=== PATIENT | male | born 1985 | race Caucasian/White ===

== ENCOUNTER 2021-09-17 19:02 | Outpatient (CLI) | payer BC, OTHER ==
--- NOTE | 2021-09-18 12:31 | XRAY Report ---
PROCEDURE: Elbow 3 View RT INDICATIONS: R ARM PX TECHNIQUE: 4 views of the elbow were acquired. COMPARISON: None FINDINGS: Bones: No fractures or dislocations. No suspicious bony lesions. Soft tissues: No elbow joint effusion. No suspicious soft tissue calcifications. IMPRESSION: No visualized acute fracture or dislocation. However, occult injury cannot be excluded. Recommend lucia rt interval imaging follow-up in 7-10 days as clinically indicated for additional evaluation. Reviewed by: Dana Richards MD on 09/18/2021 12:26 PM PDT Approved by: Dana Richards MD on 09/18/2021 12:26 PM PDT Station ID: [id number]
== END 2021-09-17 23:59 | disposition home or self-care (01) ==
LOC: DI.N 19:02
PROVIDERS: ATTEND Nurse Practitioner
DX: M79.601 Pain in right arm (principal)

== ENCOUNTER → 2022-03-09 | Outpatient (CLI) | payer BC | END | disposition short-term general hospital (02) | LOC: EMS 15:40 | DX: R42 Dizziness and giddiness (principal); R61 Generalized hyperhidrosis; I10 Essential (primary) hypertension | CPT/HCPCS: A0425; A0427 ==

== ENCOUNTER 2022-07-06 15:06 | Emergency (ER) | payer BC ==
--- NOTE | 2022-07-06 15:22 | ED Physician Documentation ---
PD HPI HEENT - Stated complaint Stated Complaint: DIZZY/NECK AND HEAD PX - Chief complaint Chief Complaint: Neuro - History obtained from History obtained from: Patient - History of Present Illness Timing - onset: How many weeks ago (he has had some neck pain for couple of weeks without apparent injury. Hurts with ROM. Has had intermittent symptoms of vertigo, worse with head movement. He states had associated arm tingling last week and seen at [facility], with labs and ct done. He believes had contrast. No DX.) Timing - details: Abrupt onset (today had onset of vertigo again when got up from sitting, worse with head movment. Incompletely improves with rest. Associated with blurred vision lateral left visual field.) Location: Other (right posterior neck pain, some right head pressure. Vertigo and left lateral visual blurring.) Worsens: Position Associated symptoms: No: Fever, Congestion, Facial swelling Similar symptoms before: No diagnosis Recently seen: Emergency Dept (seen at [facility] last week. We tried to get records from them but none sent after couple of hours. I do not have access to their EHR.) Review of Systems Constitutional: denies: Fever, Chills Eyes: reports: Decreased vision. denies: Photophobia Ears: denies: Ear pain, Tinnitus/ringing Nose: denies: Rhinorrhea / runny nose, Congestion Throat: denies: Sore throat Respiratory: denies: Cough GI: reports: Nausea. denies: Vomiting, Diarrhea Neurologic: denies: Focal weakness, Numbness, Altered mental status PD PAST MEDICAL HISTORY - Past Medical History Cardiovascular: None Respiratory: None Neuro: None Endocrine/Autoimmune: None GI: None : None HEENT: None Psych: None Musculoskeletal: Other Derm: None - Past Surgical History Past Surgical History: Yes - Present Medications Home Medications: Ambulatory Orders Medication Instructions Recorded Confirmed Meclizine HCl [Motion Sickness] 25 mg PO Q6H PRN #30 tablet 07/06/22 Meloxicam [Mobic] 7.5 mg PO BID 10 Days #20 tablet 07/06/22 Ondansetron Odt [Zofran] 4 mg TL Q6H PRN #10 tablet 07/06/22 SUMAtriptan [Imitrex] 25 mg PO Q6H PRN #8 tablet 07/06/22 dexAMETHasone [Decadron] 4 mg PO DAILY #5 tablet 07/06/22 diazePAM [Valium] 5 mg PO BID PRN #14 tablet 07/06/22 - Allergies Allergies/Adverse Reactions: Allergies Allergy/AdvReac Type Severity Reaction Status Date / Time No Known Drug Allergies Allergy Verified 07/06/22 15:16 - Social History Does the pt smoke?: Yes Smoking Status: Former smoker Does the pt drink ETOH?: Yes Does the pt have substance abuse?: No - Immunizations Immunizations are current?: Yes PD ED PE NORMAL - Vitals Vital signs reviewed: Yes - General General: Alert and oriented X 3, No acute distress, Well developed/nourished Results - Vitals Vitals: Oxygen O2 Source Room air - Labs Labs: Laboratory Tests 07/06/22 07/06/22 07/06/22 16:05 16:05 16:05 WBC 12.2 H RBC 6.07 Hgb 18.0 Hct 55.3 H MCV 91.1 MCH 29.7 MCHC 32.5 RDW 14.1 Plt Count 237 MPV 9.5 Neut # (Auto) 9.8 H Lymph # (Auto) 1.5 [place] # (Auto) 0.7 Eos # (Auto) 0.1 Baso # (Auto) 0.1 Absolute Nucleated RBC 0.00 Nucleated RBC % 0.0 ESR 1 Sodium 140 Potassium 4.1 Chloride 100 L Carbon Dioxide 29 Anion Gap 11.0 BUN 19 Creatinine 1.3 H Estimated GFR (MDRD) 61 L Glucose 95 Calcium 8.8 Magnesium 1.7 Total Bilirubin 0.9 AST 19 ALT 19 Alkaline Phosphatase 49 Total Protein 6.8 Albumin 3.8 Globulin 3.0 Albumin/Globulin Ratio 1.3 Lipase 29 TSH 07/06/22 16:05 WBC RBC Hgb Hct MCV MCH MCHC RDW Plt Count MPV Neut # (Auto) Lymph # (Auto) [place] # (Auto) Eos # (Auto) Baso # (Auto) Absolute Nucleated RBC Nucleated RBC % ESR Sodium Potassium Chloride Carbon Dioxide Anion Gap BUN Creatinine Estimated GFR (MDRD) Glucose Calcium Magnesium Total Bilirubin AST ALT Alkaline Phosphatase Total Protein Albumin Globulin Albumin/Globulin Ratio Lipase TSH 1.86 PD Medical Decision Making - ED course Complexity details: reviewed old records (tried to get eR visit records from [facility], but no response from request after couple hours. will get ct neck/head angio here. and labs. might have been done already but not clear. Concern for vertebral artery dissection, given symptoms. Also tumor or bleed. ), reviewed results (CT head/neck angio normal. Wtih the combination of symptoms, it does sound perhaps migraine type with the vertigo and some other symptoms, would fit as dx of vestibular migraines. He was given iv meds here that are for migraine and had good improvement, though the diazepam for vertigo as well.), re- evaluated patient (he is feeling mostly improved with iv fluids, toradol, compazine, and diazepam (for vertigo). consider peripheral vertigo and coincidental neck pain. gave decadron for migraine. could help with neck muscle pain too. ) Drug Therapy Requiring Monitoring for Toxicity: given iv fluids, toradol, antiemetic and diazepam without undue sedation nor any side effects. symptoms generally improved. Departure - Departure Disposition: 01 Home, Self Care Clinical Impression: Neck pain, Vestibular migraine Condition: Stable Record reviewed to determine appropriate education?: Yes Instructions: ED Headache Migraine Follow-Up: [facility] [Provider Group] [facility] [Provider Group] Prescriptions: dexAMETHasone [Decadron] 4 mg PO DAILY #5 tablet SUMAtriptan [Imitrex] 25 mg PO Q6H PRN #8 tablet PRN Reason: Migraine Meloxicam [Mobic] 7.5 mg PO BID 10 Days #20 tablet Meclizine HCl [Motion Sickness] 25 mg PO Q6H PRN #30 tablet PRN Reason: Vertigo diazePAM [Valium] 5 mg PO BID PRN #14 tablet PRN Reason: Vertigo Ondansetron Odt [Zofran] 4 mg TL Q6H PRN #10 tablet PRN Reason: Nausea / Vomiting Comments: Its not clear if the neck pain is muscular versus other causes. We can treated with some anti-inflammatories. Begin with Decadron 5 mg daily for 5 days. This will also be helpful to try to reduce potential migraine type headaches as well as the vertigo, particularly if it is related to the inner ear ear. After that, then you can take an anti-inflammatory meloxicam twice daily with food for another 7 to 10 days to try to help with general neck pain. Heat gentle stretching and massage can be tried as well to see if it helps with the neck pain. The dizziness/vertigo has components that sound like inner ear ear and so you can use the combination of the above-noted Decadron anti-inflammatory and then adding meclizine for her symptoms. You could add diazepam if needed for worse symptoms. We had given you some here and it seemed to help as well. Otherwise the combination of the vertigo along with some visual changes and some of the neck pain may combined together as a type of migraine (in particular 1 called vestibular migraine). With a subsequent episode of the vertigo with visual change and any associated headache, you could try sumatriptan along with the ondansetron as a migraine focused medication and see if that would improve the symptoms over 20 to 30 minutes or such. I sent these prescriptions to your preferred pharmacy. Follow-up with your primary care provider. I provided names for a couple of clinics. Subsequently your primary care may or may not want to obtain an MRI to ensure there is no other subtle abnormalities to account for your symptoms (such as MS/multiple sclerosis which is fairly uncommon). Discharge Date/Time: 07/06/22 18:18
[2022-07-06] MEDS ORDERED: KETOROLAC 15 MG/ML VIAL IVP STA (15:56)
[2022-07-06] MEDS ORDERED: diazePAM INJ 5 MG/ML SYRINGE IVP STA (15:56)
[2022-07-06] MEDS ORDERED: SODIUM CHLORIDE 0.9% 1,000 ML IV STA (15:58)
[2022-07-06] MEDS ORDERED: PROCHLORPERAZINE 10 MG/2 ML VIAL IVP STA (16:00)
[2022-07-06] MEDS ORDERED: iohexoL-300 100 ML VIAL ONE (16:20)
[2022-07-06 16:22] LABS: BASOPHILS # (AUTO) 0.1 10^3/uL (0.0-0.1); BASOPHILS % (AUTO) 0.5 %; EOSINOPHILS # (AUTO) 0.1 10^3/uL (0.0-0.7); EOSINOPHILS % (AUTO) 0.7 %; HCT - HEMATOCRIT 55.3 % (42.0-52.0); LYMPHOCYTES # (AUTO) 1.5 10^3/uL (1.5-3.5); LYMPHOCYTES % (AUTO) 12.1 %; MEAN CORPUSCULAR HEMOGLOBIN 29.7 pg (27.0-31.0); MEAN CORPUSCULAR HGB CONC 32.5 g/dL (32.0-36.0); MEAN CORPUSCULAR VOLUME 91.1 fL (80.0-94.0); MEAN PLATELET VOLUME 9.5 fL (7.4-11.4); MONOCYTES # (AUTO) 0.7 10^3/uL (0.0-1.0); MONOCYTES % (AUTO) 5.9 %; NEUTROPHILS # (AUTO) 9.8 10^3/uL (1.5-6.6); NEUTROPHILS % (AUTO) 80.5 %; PLT - PLATELET COUNT 237 10^3/uL (130-450); RED BLOOD COUNT 6.07 10^6/uL (4.70-6.10); RED CELL DISTRIBUTION WIDTH 14.1 % (12.0-15.0); WHITE BLOOD COUNT 12.2 x10^3/uL (4.8-10.8)
[2022-07-06 16:35] LABS: ALBUMIN 3.8 g/dL (3.2-5.5); ALBUMIN/GLOBULIN RATIO 1.3 (1.0-2.2); BILIRUBIN,TOTAL 0.9 mg/dL (0.2-1.0); CALCIUM 8.8 mg/dL (8.5-10.3); CREATININE 1.3 mg/dL (0.6-1.2); MAGNESIUM 1.7 mg/dL (1.7-2.8); POTASSIUM 4.1 mmol/L (3.5-5.0); TOTAL PROTEIN 6.8 g/dL (6.7-8.2)
[2022-07-06] MEDS ORDERED: iohexoL-300 100 ML VIAL IVP ONE (16:59)
--- NOTE | 2022-07-06 17:29 | CT Report ---
PROCEDURE: ANGIO HEAD W/WO INDICATIONS: right neck pain, dizzy, left vision blurred CONTRAST: 80ml omni 300 TECHNIQUE: Precontrast 4.5 mm thick angled axial sections acquired from the foramen magnum to the vertex. Afte r the administration of intravenous contrast, 1 mm thick sections acquired through the [place] is. Postcontrast 4.5 mm thick sections then re-acquired from the foramen magnum to the vertex. 3-di mensional lbyomeg-wghixlncy-mkxzjdifkt (MIP) and/or volume rendering reformats were acquired of the c entral intracranial vasculature. For radiation dose reduction, the following was used: automated ex posure control, adjustment of mA and/or kV according to patient size. COMPARISON: Correlation is made with the accompanying neck CT angiogram, 07/06/2022 FINDINGS: Image quality: There is streak artifact seen through the skull base. Anterior circulation: Intracranial internal carotid arteries are normal in size and flow. The flow within the paired anterior cerebral arteries is normal and symmetric. The flow within the middle cer ebral arteries is normal and symmetric. The anterior communicating artery is seen. No aneurysms are seen. Posterior circulation: Visualized portions of the vertebral arteries demonstrate normal caliber, and join to form a normal appearing basilar artery. Flow within the posterior cerebral arteries is norm al and symmetric. No aneurysms are seen. CSF spaces: Ventricles are normal in size and shape. Basal cisterns are patent. No extra-axial flu id collections. Brain: No midline shift. No intracranial bleeds or masses. [place]ieto-white matter interface appears int act. Skull and face: Calvarium and facial bones appear intact, without suspicious lesions. Sinuses: Visualized sinuses and mastoids are clear. IMPRESSION: No significant intracranial arterial abnormalities are seen. No significant intracranial abnormality is seen. Reviewed by: Landon Aguilar MD on 07/06/2022 4:28 PM [place] Approved by: Landon Aguilar MD on 07/06/2022 4:28 PM [facility] Station ID: [id number]
--- NOTE | 2022-07-06 17:31 | CT Report ---
PROCEDURE: ANGIO NECK W INDICATIONS: right neck pain, dizzy, left vision blurred CONTRAST: 80ml omni 300 TECHNIQUE: After the administration of intravenous contrast, 1.5 mm axial sections acquired from the aortic arch to the [place] of [place]. Coronal 3-D maximum intensity projection (MIP) and/or volume rendering ref ormats were then performed. For radiation dose reduction, the following was used: automated exposur e control, adjustment of mA and/or kV according to patient size. COMPARISON: Correlation is made with the accompanying head CT angiogram, 07/06/2022 FINDINGS: Image quality: Excellent. Carotid system: The great vessels demonstrate a conventional anatomy as they arise from the aortic a rch. The origins of the common carotid arteries appear patent. The common carotid arteries demonstr ate normal calibers and courses. The bifurcation regions appear normal bilaterally. The internal ca rotid arteries demonstrate normal caliber and course. Posterior circulation: The origins of the vertebral arteries appear patent. The more superior porti ons of the vertebral arteries demonstrate normal course and caliber. They join to form a normal appe aring basilar artery. Soft tissues: Mild patchy infiltrate can be seen involving the right upper lobe, as on series 2 imag es 11 and 24. Visualized neck soft tissues demonstrate no suspicious abnormalities. The thyroid is n ormal in size and there are no incidental findings. Bones: No suspicious bony lesions. Visualized cervical spine appears normally aligned. IMPRESSION: No hemodynamically significant stenosis can be seen within the arteries of the neck. Patchy infiltrate can be seen involving the right upper lobe. The estimate of stenosis included in the report of the imaging study was calculated using the NASCET method Reviewed by: Landon Aguilar MD on 07/06/2022 4:30 PM [place] Approved by: Landon Aguilar MD on 07/06/2022 4:30 PM [facility] Station ID: [id number]
[2022-07-06 18:00] VITALS: BP 143/103
[2022-07-06] MEDS ORDERED: DEXAMETHASONE 10 MG/ML VIAL PO STA (18:02)
[2022-07-06] MEDS ORDERED: CHERRY SYRUP 10 ML UDC PO ONE (18:02)
== END 2022-07-06 18:18 | disposition home or self-care (01) ==
LOC: ED 15:06
DX: G43.809 Other migraine, not intractable, without status migrainosus (principal); M54.2 Cervicalgia; Z87.891 Personal history of nicotine dependence
CPT/HCPCS: 36415; 70496; 70498; 80053; 83690; 83735; 84443; 85025; 85651; 96374; 96375; 99283; 99284; A9270; Q9967